=== PATIENT | male | born 1965 | race Asian ===

== ENCOUNTER 2021-10-17 18:04 | Emergency (ER) | payer OTHER ==
[~2021-10-17] VITALS: Ht 167.6 cm; Wt 60.0 kg
[~2021-10-17 18:04] MED LIST: CARB100 PO; PHENY100 PO
[2021-10-17] MEDS ORDERED: PHEN100C9 PO (18:51)
[2021-10-17 18:58] LABS: BASOPHILS % (AUTO) 0.5 % (0.0-2.0); EOSINOPHILS % (AUTO) 0.6 % (1.0-6.0); HEMATOCRIT 39.9 % (41-53); HEMOGLOBIN 13.3 g/dL (13.5-17.5); LYMPHOCYTES # (AUTO) 0.9 K/uL (1.0-4.8); LYMPHOCYTES % (AUTO) 12.4 % (22.0-44.0); MEAN CORPUSCULAR HEMOGLOBIN 30.8 pg (26.0-34.0); MEAN CORPUSCULAR HGB CONC 33.4 G/dL (31.0-37.0); MEAN CORPUSCULAR VOLUME 92 fL (80-100); MONOCYTES # (AUTO) 0.5 K/uL (0.1-1.0); MONOCYTES % (AUTO) 7.5 % (2.0-9.0); NEUTROPHILS # (AUTO) 5.5 K/uL (1.8-7.7); PLATELET COUNT (AUTO) 324 K/uL (150-450); RED BLOOD CELL COUNT(AUTO) 4.33 MIL/uL (4.50-5.90); RED CELL DISTRIBUTION WIDTH 13.4 % (11.5-14.5)
[2021-10-17 19:07] LABS: ANION GAP 2 mmol/L (8-16); CALCIUM, TOTAL 9.1 mg/dL (8.8-10.5); CARBON DIOXIDE 31 mmol/L (22-29); CHLORIDE 105 mmol/L (98-107); CREATININE 1.03 mg/dL (0.60-1.30); GLOMERULAR FILTR. RATE CALC > 60 mL/min (>60); GLUCOSE,RANDOM 114 mg/dL (70-110); POTASSIUM 4.1 mmol/L (3.5-5.1); SODIUM SERUM 138 mmol/L (136-145); UREA NITROGEN, BLOOD 17 mg/dL (7-18)
[2021-10-17 19:13] LABS: ALANINE AMINOTRANSFERASE 32 U/L (12-78); ALBUMIN 3.9 g/dL (3.4-5.0); ALKALINE PHOSPHATASE 165 U/L (46-116); ASPARTATE AMINOTRANSFERASE 20 U/L (15-37); BILIRUBIN,TOTAL 0.2 mg/dL (0.1-1.0); CARBAMAZEPINE (TEGRETOL) 2.5 mcg/mL (4.0-12.0); PHENYTOIN (DILANTIN) 4.4 mcg/mL (10.0-20.0)
[2021-10-17 19:50] VITALS: BP 127/98
[2021-10-17] MEDS ORDERED: CARB200T6 PO (20:01)
[2021-10-17] MEDS: PHENYTOIN SODIUM 100 MG ER CAPSULE PO ONE (20:09)
[2021-10-17] MEDS: CarBAMazepine 200 MG ER TABLET PO ONE (20:10)
== END 2021-10-17 20:12 | disposition home or self-care (01) ==
LOC: EMS 18:06
DX: G40.909 Epilepsy, unspecified, not intractable, without status epilepticus (principal); Z79.899 Other long term (current) drug therapy
CPT/HCPCS: 80053; 80156; 80185; 85025; 99284

== ENCOUNTER 2021-11-11 11:22 | Emergency (ER) | payer OTHER ==
[~2021-11-11] VITALS: Ht 165.1 cm; Wt 59.1 kg
[~2021-11-11 11:22] MED LIST changes: -CARB100 PO; +CARB200T6 PO; +PHEN100C9 PO; -PHENY100 PO
[2021-11-11 13:10] VITALS: BP 107/65
== END 2021-11-11 13:27 | disposition home or self-care (01) ==
LOC: EMS 11:25
DX: R56.9 Unspecified convulsions (principal); Z79.899 Other long term (current) drug therapy
CPT/HCPCS: 70450; 99284